=== PATIENT | female | born 1990 | race Caucasian/White ===

== ENCOUNTER 2021-03-21 11:49 | Emergency (ER) | payer SELFPAY ==
[2021-03-21 11:50] VITALS: BP 131/71; PULSE 109; RESP 16; TEMP 36.2; O2SAT 100; BMI 19.8
--- NOTE | 2021-03-21 13:09 | EKG12_ITS ---
Test Reason : PALPITATIONS Blood Pressure : / mmHG Vent. Rate : 098 BPM Atrial Rate : 098 BPM P-R Int : 140 ms QRS Dur : 090 ms QT Int : 340 ms P-R-T Axes : 059 079 047 degrees QTc Int : 434 ms Normal sinus rhythm Normal ECG Confirmed by VEE OMER, ANETA ([id number]), news editor OLI VIDES ([id number]) on 03/22/2021 9:47:24 AM Referred By: PL Confirmed By:ANETA BAXTER MD
--- NOTE | 2021-03-21 13:09 | VDLE_ITS ---
Reason For Study: Pain RIGHT GSV is normal. CFV is compressible, spontaneous, phasic, competent and demonstrates normal augmentation. FV is compressible, spontaneous, phasic, competent and demonstrates normal augmentation. POP V is compressible, spontaneous, phasic, competent and demonstrates normal augmentation. T/P Trunk is compressible. PTV is compressible. RT PerV is compressible. Procedure This is a venous duplex using B-mode, color flow and spectral Doppler. Exam performed portable in ED. A preliminary report was called and/or faxed to Ana. VL/Venous Duplex US, Unilateral Interpretation Summary There is no evidence of right lower extremity deep vein thrombosis. Right great saphenous vein appears patent and compressible segmentally. Ordering Physician: Cesar Perez Referring Physician: Alexis Patel Performed By: Sujatha Ervin RVT
--- NOTE | 2021-03-21 13:14 | NURSING ---
NO OLD EKGS
[2021-03-21 13:32] LABS: Absolute Neutrophil Count 4.6 X10^3/uL (2.0-7.7); Basophil# 0.01 X10^3/uL; Basophil% 0.2 % (0-1); Eosinophil# 0.01 X10^3/uL; Eosinophils% 0.2 % (0-5); Hematocrit 35.4 % (37-47); Hemoglobin 12.2 g/dL (12.0-15.0); Lymphocyte % 9.2 % (19-41); Mean Corp Hgb Conc 34.5 g/dL (32-36); Mean Corpuscular Hgb 29.5 pg (27.0-32.0); Mean Corpuscular Volume 85.7 fL (81-99); Monocyte# 0.36 X10^3/uL; Monocyte% 6.6 % (0-10); NRBC Flagged by Analyzer 0 % (0-5); Neutrophil # 4.56 X10^3/uL (2.7-7.7); Neutrophil % 83.4 % (47-70); POSITIVE DIFFERENTIAL YES; Platelet Count 171 K/mm3 (150-450); RBC Distribution Width CV 13.6 % (11.6-14.6); RBC Distribution Width SD 42.5 fl (35.1-43.9); Red Blood Count 4.13 M/mm3 (4.2-5.4); White Blood Count 5.5 K/mm3 (4.4-11.0)
[2021-03-21 13:34] LABS: Differential Indicated SCAN CRITERIA MET
[2021-03-21 13:46] LABS: Anion Gap 6 (5-15); BUN 5 mg/dL (7-18); BUN/Creat Ratio 10.5 RATIO (10-20); Calcium,Total 8.7 mg/dL (8.5-10.1); Chloride 102 mmol/L (98-107); Creatinine, Serum 0.48 mg/dL (0.55-1.02); EST Glomerular Filtration Rate 164 mL/min (>60); Est Glom Filt Rate - Afr Amer 198 mL/min (>60); Estimated Creatinine Clearance 138.69 ml/min; Glucose 78 mg/dL (74-106); Potassium 3.3 mmol/L (3.5-5.1); Sodium Level 133 mmol/L (136-145)
[2021-03-21 13:57] LABS: Bacteria 0 SEEN /hpf (None Seen); Mucous, Urine 0 SEEN /hpf (<or=2+); White Blood Cells 0 SEEN /hpf (0-5)
--- NOTE | 2021-03-21 13:57 | ED.RN ---
pt refuses iv fluids at this time.
[2021-03-21 13:59] LABS: Color, Urine Straw (Yellow); Glucose, Dipstick Normal (Normal); Ketone-Dipstick 50 mg/dl (Negative); Leukocyte Esterase-Dipstick Negative /ul (Negative); Nitrite-Dipstick Negative (Negative); Occult Blood-Urine 10 /ul (Negative); Protein-Dipstick Negative (Negative); Urine Bilirubin Dipstick Negative (Negative); Urine Clarity Clear (Clear); Urine Urobilinogen Normal (Normal)
[2021-03-21 14:05] LABS: D-Dimer Quantitative (DVT/PE) 0.64 FEU/ug/m (0.27-0.49)
[2021-03-21 14:08] LABS: Red Blood Cells-Urine 0-5 SEEN /hpf (0-5); Squamous Epithelial Cells - UA 0-5 SEEN /hpf (5-10)
--- NOTE | 2021-03-21 14:22 | CT_ITS ---
STUDY: CTA CHEST REASON FOR EXAM: Female, 31 years old. Palpitations and tachycardia. Bilateral lower extremity pain. The patient is 14 weeks . The patient is shielded appropriately. RADIATION DOSAGE (If Supplied By Facility): CTDIvol = ( 5.16 ) mGy, DLP = ( 187.34 ) mGycm TECHNIQUE: The examination was performed with the intravenous administration of IV 100mL Isovue-370. Post-processing of the angiographic images was performed, with multiplanar reformation and 3D reconstruction. Individualized dose optimization techniques were used for this CT. COMPARISON: None. FINDINGS: Normal enhancement of the main pulmonary artery and right and left pulmonary arteries. Normal enhancement of the bilateral peripheral pulmonary arteries. There is no demonstrated pulmonary embolism. Normal thoracic aorta and visualized great vessels. There is no demonstrated aortic dissection. Normal heart and pericardium. Normal mediastinum. Normal hilar regions. Normal visualized trachea and bronchi. The lungs are well expanded. Normal pulmonary parenchyma. Normal pleura. Normal chest wall structures. Normal osseous structures. Normal visualized upper abdomen. CT/CTA Chest W/WO Contrast IMPRESSION: Normal CTA chest examination, without a demonstrated pulmonary embolism or arterial dissection. Electronically Signed: Akash Hills MD at 15:26 EST ,
--- NOTE | 2021-03-21 14:23 | EDS_ITS ---
HPI History of Present Illness Chief Complaint: Palpitations Informant: patient and spouse/S.O. Narrative Narrative: Patient presents with some chest tightness, cough, dyspnea, intermittent tachycardia. The symptoms been going on for about two or maybe 3 days. She also has some mild lower backache but it is mild. She also has some soreness of her right anterior lateral thigh in an area where she has known varicosities. She has not had fevers that she knows of. She has no dysuria. She has no abdominal or pelvic pain. Patient is about 14 weeks . She is G 13 P5. When she stated this I asked if she is has history of clotting disorders. She states she just takes a baby aspirin a day. If she takes that she can carry to full-term but if she does not she will have early miscarriages. It sounds like she has had a positive MTHFR far in the past. I think factor V Leiden she recognized as being negative. She has never had a PE or DVT that she knows of. She has no recent travel surgery or immobilization. She does have symptoms as above. Nothing really makes her symptoms better or worse. She has a bit of a cough but is not productive. PFSH PFS Medical History no medical history Home Medications vit,[id number] [Prenatabs FA ] 1 tab PO DAILY 03/06/14 [History Last Taken 12/12/16] Allergy/AdvReac Type Severity Reaction Status Date / Time latex Allergy Rash Verified 03/21/21 11:52 peanut Allergy Rash Verified 03/21/21 11:52 Surgical History no surgical history Social History Smoking Status: Never smoker ROS ROS ED Constitutional Constitutional ED: Denies chills or fever(s) Eyes Eyes: Denies blurry vision or change in vision ENT ENT ED: Denies rhinorrhea or sore throat Cardiovascular Cardiovascular: Reports chest pain and other Details: She describes a slight soreness or tightness. It is not focal or pleuritic. ; Denies palpitations or racing heartbeat Respiratory/Chest Respiratory/Chest: Reports cough and dyspnea; Denies sputum Gastrointestinal Gastrointestinal: Denies abdominal pain, diarrhea, nausea or vomiting Genitourinary Genitourinary ED: Denies dysuria, hematuria or urinary frequency Musculoskeletal Musculoskeletal: Reports back pain; Denies arthralgias, myalgias or neck pain Integumentary Denies rash Neurologic Neurologic: Denies headache(s) or weakness Endocrine Endocrinology: Denies polydipsia or polyuria Allergic/Immunologic Allergic/Immunologic ED: Denies mouth swelling or urticaria EXAM Physical Exam Const Vital Signs: 03/21/21 11:50 03/21/21 13:56 03/21/21 15:28 Temperature 97.2 F L Temperature Source Temporal Pulse Rate 109 H 94 Respiratory Rate 16 16 Respiratory Effort Normal Non-Labored Blood Pressure 131/71 H 98/77 Blood Pressure Mean 91 84 Pulse Ox 100 100 Oxygen Delivery Method Room Air Room Air Positive well nourished and well developed; Negative for unkempt General Appearance ED: well developed and NAD; Negative for unkempt, cyanotic or diaphoretic HEENT Negative for trauma or tenderness Eyes General Eye ED: Negative for pale conjunctiva or scleral icterus Neck no JVD Chest Wall inspection of chest normal Resp normal respiratory effort and clear to auscultation bilaterally Resp Narrative: No indication of pleuritic pain on exam. Her lungs are clear. She does have a rare dry cough while I am in the room. Effort and Inspection: Negative for pain with movement Auscultation: Negative for rales, rhonchi or wheezes Cardio regular rhythm and no murmurs; Negative for regular rate Rate: tachycardic and other Other Details: Mildly tachycardic rate that runs about 95-110 while I am in the room. GI normal to inspection, nondistended, normoactive bowel sounds, non-tender and non-distended Palpation: soft Back/Spine no CVA tenderness Back/Spine Narrative: No real lumbar tenderness. Cervical Spine: Negative for cervical spine tenderness Thoracic Spine / Upper Back: Negative for thoracic spinal tenderness or paraspinal muscle tenderness Lumbar Spine / Lower Back: Negative for lumbar spinal tenderness Extremity Extremity Narrative: Patient does have fair amount of varicosities these diffusely on the right leg. I do not feel any cords or firm areas. No signs of erythema or local inflammation. No diffuse edema. Neuro Sensorium / Orientation: alert Psych mental status grossly normal Appearance: Negative for unkempt Skin no rashes or lesions noted MDM MDM MDM Narrative Medical decision making narrative: Patient CBC shows normal white count hemoglobin. Urinalysis was overall unremarkable. Electrolytes were essentially normal other than minimal drop of potassium and sodium that does not need correction. D-dimer was elevated. I had a discussion initially and at this time again with the patient and her . We discussed risk benefits and options of not doing CTA. The did agree to pursue. This patient does have some mild tachycardia. This certainly could be due to but may be other causes. But she also has chest discomfort, dyspnea, varicosities and history of MTHFR. Patient CTA did not show any acute process. Plan will be to get her home. There are some symptomatology consistent with a viral illness with some mild muscle ache and a slight nonproductive cough. We did not check for Covid as she does not have further symptoms and has no sign of that on CT. We did discuss follow-up and the reasons to return. There is no hypoxia. Lab Data Attestation: I reviewed the patient's lab results. Labs: Laboratory Results - last 24 hr 03/21/21 03/21/21 03/21/21 13:12 13:20 13:20 WBC 5.5 RBC 4.13 L Hgb 12.2 Hct 35.4 L MCV 85.7 MCH 29.5 MCHC 34.5 RDW Std Deviation 42.5 RDW Coeff of Estephanie 13.6 Plt Count 171 MPV 9.0 Immature Gran % (Auto) 0.400 Neut % (Auto) 83.4 H Lymph % (Auto) 9.2 L Sumner % (Auto) 6.6 Eos % (Auto) 0.2 Baso % (Auto) 0.2 Absolute Neuts (auto) 4.6 Absolute Lymphs (auto) 0.50 L Nucleated RBC % 0 D-Dimer Quant (PE/DVT) 0.64 H* Sodium Potassium Chloride Carbon Dioxide Anion Gap BUN Creatinine Estim Creat Clear Calc Est GFR (MDRD) Af Amer Est GFR (MDRD) Non-Af BUN/Creatinine Ratio Glucose Calcium Urine Color Straw Urine Clarity Clear Urine pH 5.0 Ur Specific [place] 1.010 Urine Protein Negative Urine Glucose (UA) Normal Urine Ketones 50 H Urine Occult Blood 10 H Urine Nitrite Negative Urine Bilirubin Negative Urine Urobilinogen Normal Ur Leukocyte Esterase Negative Urine RBC 0-5 SEEN Urine WBC 0 SEEN Ur Squamous Epith Cells 0-5 SEEN Urine Bacteria 0 SEEN Urine Mucus 0 SEEN 03/21/21 13:20 WBC RBC Hgb Hct MCV MCH MCHC RDW Std Deviation RDW Coeff of Estephanie Plt Count MPV Immature Gran % (Auto) Neut % (Auto) Lymph % (Auto) Sumner % (Auto) Eos % (Auto) Baso % (Auto) Absolute Neuts (auto) Absolute Lymphs (auto) Nucleated RBC % D-Dimer Quant (PE/DVT) Sodium 133 L Potassium 3.3 L Chloride 102 Carbon Dioxide 25.0 Anion Gap 6 BUN 5 L Creatinine 0.48 L Estim Creat Clear Calc 138.69 Est GFR (MDRD) Af Amer 198 Est GFR (MDRD) Non-Af 164 BUN/Creatinine Ratio 10.5 Glucose 78 Calcium 8.7 Urine Color Urine Clarity Urine pH Ur Specific [place] Urine Protein Urine Glucose (UA) Urine Ketones Urine Occult Blood Urine Nitrite Urine Bilirubin Urine Urobilinogen Ur Leukocyte Esterase Urine RBC Urine WBC Ur Squamous Epith Cells Urine Bacteria Urine Mucus Radiography Diagnostic Testing: Clinical Impression(s) from Imaging Studies Venous Doppler Study 03/21/21 13:09 Interpretation Summary There is no evidence of right lower extremity deep vein thrombosis. Right great saphenous vein appears patent and compressible segmentally. Ordering Physician: Cesar Perez Referring Physician: Alexis Patel Performed By: Sujatha Ervin RVT Chest CTA 03/21/21 14:22 IMPRESSION: Normal CTA chest examination, without a demonstrated pulmonary embolism or arterial dissection. Electronically Signed: Akash Hills MD at 15:26 EST , EKG Initial EKG: Comments: EKG done due to dyspnea cough and some chest discomfort. EKG read by me showed sinus rhythm overall rate of 98. No ectopy. No preexcitation. No acute ST elevation or depression. AR interval, QRS duration and QTc are normal. Discharge Plan Triage Chief Complaint: Palpitations ED Provider: Cesar Perez Dx/Rx/DC Orders Clinical Impression: Chest discomfort, Cough, First trimester Instructions: ED Chest Pain, Uncertain Cause Prescriptions: No Action Prenatabs FA 1 TABLET tablet 1 tab PO DAILY RF: 0 Primary Care Provider: Alexis Patel Referrals: Alexis Patel, PAAlmaC [Primary Care Provider] - 3-5 Days if not improving Activity Restrictions/Additional Instructions: Follow-up with your WINDLACE MACHINE OPERATOR as planned Disposition Disposition: Home, Self Care
[2021-03-21 15:28] VITALS: BP 98/77; PULSE 94; RESP 16; O2SAT 100
[2021-03-21 16:00] VITALS: BP 98/77; PULSE 101; RESP 18; O2SAT 98
== END 2021-03-21 16:01 | disposition home or self-care (01) ==
PROVIDERS: Emergency Provider Emergency Medicine; PCP Physician Assistant; Visit Provider Emergency Medicine
DX: O26.891 Other specified pregnancy related conditions, first trimester (principal); R05.9 Cough, unspecified; R06.00 Dyspnea, unspecified; R00.0 Tachycardia, unspecified; M54.9 Dorsalgia, unspecified; R07.89 Other chest pain; Z3A.14 14 weeks gestation of pregnancy
CPT/HCPCS: 71275; 80048; 81001; 85025; 85379; 93005; 93971; 96360; 96361; 99284; J7030; Q9967

== ENCOUNTER 2022-12-27 11:40 | Outpatient (CLI) | payer SELFPAY ==
--- NOTE | 2022-12-27 11:51 | US_ITS ---
STUDY: SECOND AND THIRD TRIMESTER OBSTETRICAL ULTRASOUND - LIMITED REASON FOR EXAM: Female, 32 years old bleeding dates, growth LMP: 08/31/2022 PRIOR ULTRASOUND: No relevant prior comparison study available TECHNIQUE: Transabdominal TECHNICAL QUALITY: Adequate. FINDINGS: There is a twin intrauterine fetus. Twin A: The fetus is in a transverse lie with the head on the maternal left side. There is demonstrated cardiac activity with a heart rate of 155 bpm. There is a normal amniotic fluid volume. The largest amniotic fluid pocket measures 4.5 cm. The placenta is anterior in location and is not low lying. There are Grade 0 placental changes. The cervix measures 4.7 cm in length. BIOMETRY: BPD: 3.5 cm: 16 weeks, 6 days HC: 13.1 cm: 16 weeks, 5 days AC: 10.7 cm: 16 weeks, 4 days FL: 1.8 cm: 15 weeks, 2 days Age by LMP: 16 weeks, 6 days. EVAN by LMP: 06/07/2023. age by current US: 16 weeks, 3 days. EVAN by current US: 06/10/2023. Estimated weight: 146 grams, +/- 22 grams, 11 percentile. Gender: Indeterminant. anatomy is not evaluated at this time. Twin B The fetus is in a transverse lie with the head on the maternal right side. There is demonstrated cardiac activity with a heart rate of 155 bpm. There is a normal amniotic fluid volume. The largest amniotic fluid pocket measures 4.5 cm. The placenta is posterior in location and is not low lying. There are Grade 0 placental changes. The cervix measures 4.7 cm in length. BIOMETRY: BPD: 3.5 cm: 16 weeks, 6 days HC: 12.8 cm: 16 weeks, 4 days AC: 10.8 cm: 16 weeks, 4 days FL: 2 cm: 16 weeks, 0 days Age by LMP: 16 weeks, 6 days. EVAN by LMP: 06/07/2023. age by current US: 16 weeks, 4 days. EVAN by current US: 06/09/2023. Estimated weight: 156 grams, +/- 23 grams, 20 percentile. Gender: Indeterminant. anatomy is not evaluated at this time. IMPRESSION: Twin as described above. Electronically Signed: Hans Henderson MD at 15:48 EST , STUDY: SECOND AND THIRD TRIMESTER OBSTETRICAL ULTRASOUND - LIMITED REASON FOR EXAM: Female, 32 years old bleeding dates, growth LMP: 08/31/2022 PRIOR ULTRASOUND: No relevant prior comparison study available TECHNIQUE: Transabdominal TECHNICAL QUALITY: Adequate. FINDINGS: There is a twin intrauterine fetus. Twin A: The fetus is in a transverse lie with the head on the maternal left side. There is demonstrated cardiac activity with a heart rate of 155 bpm. There is a normal amniotic fluid volume. The largest amniotic fluid pocket measures 4.5 cm. The placenta is anterior in location and is not low lying. There are Grade 0 placental changes. The cervix measures 4.7 cm in length. BIOMETRY: BPD: 3.5 cm: 16 weeks, 6 days HC: 13.1 cm: 16 weeks, 5 days AC: 10.7 cm: 16 weeks, 4 days FL: 1.8 cm: 15 weeks, 2 days Age by LMP: 16 weeks, 6 days. EVAN by LMP: 06/07/2023. age by current US: 16 weeks, 3 days. EVAN by current US: 06/10/2023. Estimated weight: 146 grams, +/- 22 grams, 11 percentile. Gender: Indeterminant. anatomy is not evaluated at this time. Twin B The fetus is in a transverse lie with the head on the maternal right side. There is demonstrated cardiac activity with a heart rate of 155 bpm. There is a normal amniotic fluid volume. The largest amniotic fluid pocket measures 4.5 cm. The placenta is posterior in location and is not low lying. There are Grade 0 placental changes. The cervix measures 4.7 cm in length. BIOMETRY: BPD: 3.5 cm: 16 weeks, 6 days HC: 12.8 cm: 16 weeks, 4 days AC: 10.8 cm: 16 weeks, 4 days FL: 2 cm: 16 weeks, 0 days Age by LMP: 16 weeks, 6 days. EVAN by LMP: 06/07/2023. age by current US: 16 weeks, 4 days. EVAN by current US: 06/09/2023. Estimated weight: 156 grams, +/- 23 grams, 20 percentile. Gender: Indeterminant. anatomy is not evaluated at this time. US/OB Limited With Biometrics IMPRESSION: Twin as described above. Electronically Signed: Hans Henderson MD at 15:49 EST ,
[2022-12-27 11:56] VITALS: BMI 22.6
[2022-12-27 11:58] VITALS: BP 107/62; PULSE 96; TEMP 36.8
[2022-12-27 12:14] LABS: Absolute Neutrophil Count 3.4 X10^3/uL (2.0-7.7); Basophil# 0.02 X10^3/uL; Basophil% 0.4 % (0-1); Eosinophil# 0.04 X10^3/uL; Eosinophils% 0.7 % (0-5); Hematocrit 32.9 % (37-47); Hemoglobin 11.2 g/dL (12.0-15.0); Lymphocyte % 26.2 % (19-41); Mean Corpuscular Hgb 29.6 pg (27.0-32.0); Mean Platelet Vol. 8.8 fl (6.2-12.0); Monocyte# 0.48 X10^3/uL; NRBC Flagged by Analyzer 0 % (0-5); Neutrophil # 3.38 X10^3/uL (2.7-7.7); Neutrophil % 63.3 % (47-70); Platelet Count 246 K/mm3 (150-450); RBC Distribution Width CV 13.7 % (11.6-14.6); RBC Distribution Width SD 43.8 fl (35.1-43.9); Red Blood Count 3.78 M/mm3 (4.2-5.4); White Blood Count 5.3 K/mm3 (4.4-11.0)
--- NOTE | 2022-12-27 14:11 | NURSING ---
3900 ultrasound called to see if pt felt her bladder was filled. pt stated yes. taken to US via wheelchair with .
--- NOTE | 2022-12-27 16:38 | NURSING ---
nurse and pt both talked to Dr Sim. Dr Sim informed pt it would be best to co-care with this due to twins. She recommended following up for visit and ultrasound in [address] Sim will notify her when lab results are finalized if she needs to come back for additional dose of Rhogam. E Business Project Manager to be notified and updated by office. ok to discharge home. pt has had no further bleeding.
--- NOTE | 2022-12-27 20:55 | OB.TRI.HP_ITS ---
HPI - General General Date of Admission: 12/27/22 Date of Service: 12/27/22 Chief Complaint: vaginal bleeding HPI Narrative CLAUDE WELLER, is a 32 F who presents c/o vaginal bleeding this am. No active bleeding when arrived to L&D. Maternal Data Information Final EVAN: 06/07/23 Gestational age: 16 w [facility] Medical History no medical history Home Medications vits,calcium no.78-iron fumarate-folic acid 29 mg-1 mg tablet (Prenatabs FA) 1 tab PO DAILY 03/06/14 [History Last Taken 12/26/22 08:00 0.5 tabs] Allergy/AdvReac Type Severity Reaction Status Date / Time latex Allergy Rash Verified 12/27/22 11:55 peanut Allergy Rash Verified 12/27/22 11:55 Surgical History no surgical history Social History Smoking Status: Never smoker History Elective abortions Hx Para 2 Spontaneous abortions Hx # Term Pregnancies Ectopic pregnancies Hx # Pregnancies Multiple births # of living children Assessment & Plan (1) 16 weeks gestation of : PLAN: High risk grand multiparity female at approximately 16 weeks 6 days gestation which with what appears to be diamniotic dichorionic twin gestation. Normal cervical length. No active bleeding upon admission. No evidence of labor. AGA fetus x2. Given RhoGAM x1 for Rh- status. CBC normal. If screen indicates patient needs more RhoGAM, will have her return for this. Recommend follow-up in our office within 1 month and reviewed case with her outreach analyst. Recommend code care since patient is high risk twin gestation (2) High risk multigravida in second trimester: (3) Dichorionic diamniotic twin gestation:
[2022-12-28 09:27] LABS: Kleihauer-Betke Negative
== END 2022-12-27 16:35 | disposition home or self-care (01) ==
LOC: WPOUT 11:47 → WP 11:48
PROVIDERS: PCP Physician Assistant; Referring Provider Obstetrics & Gynecology; Visit Provider Obstetrics & Gynecology
DX: O26.892 Other specified pregnancy related conditions, second trimester (principal); O30.042 Twin pregnancy, dichorionic/diamniotic, second trimester; O09.522 Supervision of elderly multigravida, second trimester; Z3A.16 16 weeks gestation of pregnancy
CPT/HCPCS: 76816; 85025; 85460; 86850; 86900; 86901; 96372; 99221; G0378; J2790